=== PATIENT | male | born 1935 | race Caucasian/White ===

== ENCOUNTER 2016-11-16 14:00 | Inpatient (IN) | payer MEDICARE, OTHER ==
[2016-11-16] MEDS ORDERED: Acetaminophen TAB* 325 MG PO PRN (16:12)
[2016-11-16] MEDS ORDERED: Dextrose 50% Syringe 50 ML* 25 GM/50 ML SYRINGE IV PUSH PRN (16:16)
[2016-11-16] MEDS ORDERED: predniSONE TAB* 10 MG PO SCH (16:30)
[2016-11-16] MEDS: Insulin LISPRO* 1 UNITS UNIT SUBCUT SCH (16:37)
--- NOTE | 2016-11-16 16:48 | RAD ---
INDICATION: Pneumonia. COMPARISON: Comparison is made with a prior chest x-ray study from July 19, 2016. TECHNIQUE: A portable view of the chest was obtained. FINDINGS: The heart is enlarged and unchanged from the prior exam. The lungs are underinflated and grossly clear. No pleural effusion is seen. IMPRESSION: NO EVIDENCE FOR ACUTE FINDING.
[2016-11-16] MEDS ORDERED: cefTRIAXone VIAL(*) 1,000 MG in NS 0.9% 50 ML* 50 ML IVPB SCH (17:00)
[2016-11-16] MEDS: Folic Acid TAB* 1 MG PO SCH (17:13)
[2016-11-16] MEDS: Enoxaparin(*) 40 MG/0.4 ML SYR SUBCUT SCH (17:13)
[2016-11-16] MEDS: Nystatin SUSPENSION* 100000 UNITS/ML 5 ML UDC PO SCH ×2 (17:13→19:39)
[2016-11-16] MEDS: Sertraline* 100 MG TAB PO SCH (17:13)
[2016-11-16] MEDS: NS 0.9% 1000 ML* 1,000 ML IV SCH (17:14)
[2016-11-16] MEDS: DOXYcycline IV* 100 MG in NS 0.9% 250 ML* 250 ML IVPB SCH (17:55)
[2016-11-16 18:26] LABS: BUN/Creatinine Ratio 16.3 (8-20); C Reactive Protein 92.17 mg/L (< 5.00); Calcium 9.6 mg/dL (8.6-10.3); EGFR African American 109.5 (>60); EGFR Non-African American 85.1 (>60); Potassium 3.9 mmol/L (3.5-5.0)
[2016-11-16 18:31] LABS: Troponin I 0.19 ng/mL (<0.04)
[2016-11-16 18:34] LABS: Hematocrit 39 % (42-52); Hemoglobin 12.6 g/dl (14.0-18.0); Mean Corpuscular HGB Conc 33 g/dl (31-36); Mean Corpuscular Hemoglobin 29 pg (27-31); Mean Corpuscular Volume 89 fL (80-94); Mean Platelet Volume 8 um3 (7.4-10.4); Red Blood Count 4.39 10^6/ul (4.0-5.4); Red Cell Distribution Width 16 % (10.5-15); White Blood Count 8.6 10^3/ul (3.5-10.8)
[2016-11-16 19:25] LABS: Erythrocyte Sed Rate 79 mm/Hr (0-40)
--- NOTE | 2016-11-16 22:57 | HP ---
ADMISSION HISTORY AND PHYSICAL: DATE OF ADMISSION: 11/16/16 PRIMARY CARE PROVIDER: Brayden Yates DO. ADMITTING PROVIDER: MAYRA Mckeon. SUPERVISING PHYSICIAN: Dr. Jesus Manuel Burton.* (DICTATED BY MAYRA MCKEON) CHIEF COMPLAINT: Unresponsive episode, transferred from [facility] in [place]. HISTORY OF PRESENT ILLNESS: This is an 81-year-old gentleman with a diagnosis of temporal arteritis towards the end of June, followed by Dr. Murray, currently on a prednisone taper, as well as hyperlipidemia, depression, mild dementia, and steroid-induced hyperglycemia managed with metformin, as well as a history of hypertension, but his antihypertensives were discontinued about 6 months ago. The patient was transferred to our service from [facility] per the family's request. Apparently, on 11/14/16, which is now 2 days ago, the patient had an unresponsive episode. The patient had awoken in the morning, but was still in bed and seemed appropriate and then when his girl- friend returned she was unable to wake him and he had these jerky movements and an episode of urinary incontinence in the bed. EMS was contacted and the patient was transferred to [facility]. The patient's girlfriend estimated that this episode lasted approximately 45 minutes and he was still largely unresponsive when he left the house with EMS. The patient had an extensive workup at [facility], which revealed possibly a mild bibasilar pneumonia seen on chest x-ray and CTA of the chest. An EEG was performed, which was negative for any epileptic activity, and an MRI of the brain which, I believe, was done without contrast was also performed and did not show any acute abnormalities that may have been responsible for a seizure. The patient's initial troponin when he reached [facility] was 0.14. It was raised to a peak of 1.9, unsure exactly what the timing of that was. He was started on a heparin drip empirically and underwent an echocardiogram which did not show any wall motion abnormalities. There were no EKG changes appreciated and the patient denied any complaints of chest pain. The patient was started on ceftriaxone and doxycycline for a presumed pneumonia. He did not have any complaints of cough, did not have any measured fevers, and his white blood cell count was 10,900 at admission. EMS did note him to be hypoxic, however, when they reached the house, and his oxygen levels were measured at 86%. Neurology consultation was obtained at [facility]. The neurologist there thought it was quite unlikely that he experienced a seizure and thought that perhaps a REM sleep disorder could have explained the episode that his girlfriend had witnessed and thought that a workup for sleep apnea would be appropriate. No specific intervention was recommended. Of note, the patient had a significantly elevated lactic acid at the time of admission at 3.06, I do not see this was repeated; and a prolactin level was not obtained at the time of admission. Yesterday, the patient became severely agitated to the point that he required physical restraints as well as chemical sedation, and the patient's family stated that they had seen him get somewhat agitated with hospital admissions in the past and he does have some baseline dementia, but nothing to the extent of what they witnessed yesterday. He was inflicting self-harm to the point that he was gnawing on his own wrist and trying to get out of the restraints and was swearing at nursing and punching at family members. The patient's family requested transfer to [facility] as he has had a prior hospitalization here at the end of June at which point he was diagnosed with temporal arteritis and has been followed by Dr. Murray since that time and is on a tapering dose of steroids. He was started on 60 mg daily and is currently on 40 mg alternating with 30 mg. The patient's primary symptoms at that time were headache and dizziness and those symptoms have since resolved. PAST MEDICAL HISTORY: 1. Hyperlipidemia. 2. Depression. 3. History of temporal arteritis, still treated with prednisone, followed by Dr. Murray. 4. Mild dementia. 5. Steroid-induced hyperglycemia, currently being treated with metformin. 6. History of hypertension - antihypertensive medications were discontinued about 6 months ago, but the patient's family reports that his blood pressure has been increasing over the last couple of months. HOME MEDICATIONS: 1. Sertraline 100 mg p.o. daily. 2. Metformin 500 mg p.o. daily. 3. Prednisone 40 mg alternating with 30 mg daily. 4. Vitamin D 2000 units p.o. daily. 5. Folic acid 1 mg p.o. daily. FAMILY HISTORY: No significant family history. Mother passed at quite an advanced age and father of complications from peritonitis. SOCIAL HISTORY: The patient has been living independently up until recently where he has been living with his girlfriend more frequently who is closer to the [facility] and she has been helping him as he has been having increased weakness. His 2 daughters, Nita and Shanita, are his healthcare proxies. He has no smoking history. He has had a history of rather significant alcohol intake, but it seems like that volume has decreased to near zero. REVIEW OF SYSTEMS: The patient reports that his review of systems is negative including chest pain, shortness of breath, cough, abdominal pain, nausea, and vomiting. He does not recall the events of the last several days, however. PHYSICAL EXAMINATION GENERAL: This is a very pleasant 81-year-old gentleman, in no acute distress. He smiles frequently and is interactive. VITAL SIGNS: Temperature 98.6 degrees Fahrenheit, pulse 72 beats per minute, respiratory rate 20, oxygen saturation 96% on 3 L, and blood pressure 176/90 mmHg. HEENT: Head is normocephalic and atraumatic. His tongue, however, has several healing lesions and is quite swollen itself. Evidence of old bleeding, which sounds like might have been a result of yesterday's struggle, but there is also some evidence of thrush. RESPIRATORY: Lungs are clear to auscultation without wheezes, crackles, or rhonchi. CARDIOVASCULAR: Heart has a regular rate and rhythm without murmurs, rubs, or gallops. ABDOMEN: Soft and nontender to palpation. EXTREMITIES: There is no lower extremity edema appreciated. SKIN: The patient has multiple areas of ecchymosis in various stages of healing. No other abnormal rashes or lesions appreciated. PSYCH: The patient is alert and appropriately oriented. Not all orientation questions were completed. LABORATORY EVALUATION: CBC, basic metabolic panel, lactic acid, troponin, procalcitonin, and CRP are pending for today. Reviewed admission labs from at [facility] where white blood cell count of 10,900 was noted. He is mildly anemic with a hemoglobin of approximately 12.5 g/dL and a platelet count of approximately 135,000. Troponin was mildly elevated at 0.14, peaking at 1.9. Basic metabolic panel was unremarkable and lactic acid at admission was 3.06. IMAGING: Repeat chest x-ray from admission here, 11/16/16, shows no acute process. Remainder of imaging from [facility] is as follows: 1. Chest x-ray shows mild bibasilar infiltrate. 2. CT of the head shows microvascular changes, which appear to be chronic in nature. 3. EEG is read as negative and possibly representing a chronic encephalopathy, but no epileptiform activity. 4. MRI of the brain without contrast is negative for abnormal lesions or recent infarct. 5. CTA of the chest shows no dissection or embolus, but does show a mild bibasilar infiltrate. 6. Echocardiogram is reported as essentially within normal limits, with a left ventricular ejection fraction of 60% to 65%, without wall motion changes. 7. CT of the abdomen and pelvis showed a liver cyst that requires followup, but otherwise no acute changes. ASSESSMENT AND PLAN: This is an 81-year-old gentleman with a relative recent diagnosis of temporal arteritis, being treated with a prednisone taper, as well as steroid-induced hyperglycemia, mild dementia, hypertension, hyperlipidemia, and depression who was admitted at [facility] for an unresponsive episode and was subsequently transferred to [facility] per family's request. 1. Unresponsive episode - a very thorough workup was completed at [facility]. The history sounds like it could have represented a seizure, but in an 81-year-old gentleman, we should see some sort of inciting cause for a new onset seizure such as brain lesion, recent infarct or metabolic process, none of which were discovered in recent workup. The patient is actively followed by Dr. Murray for neurologic care for his temporal arteritis and we will request his input in this case. The patient seems to be back to his baseline neurologic status at this time and does not require any urgent intervention. We will also measure overnight pulse oximetry to evaluate for hypoxia which may help to support the idea of potential sleep apnea. 2. History of temporal arteritis - Continue his current tapering dose of prednisone which is 30 mg alternating with 40 mg daily. 3. Possible pneumonia - Repeat chest x-ray here did not show any obvious infiltrate. He received 2 days of ceftriaxone and doxycycline at [facility]. Plan to continue that at this time, with repeat labs pending. 4. Steroid-induced hyperglycemia - I will hold his metformin at this time and cover with sliding scale insulin. 5. Deconditioning - The patient's family has noticed that he is extremely weak. I will ask for Physical Therapy and Occupational Therapy consults and consider short- term rehab stay at the time that he is appropriate for discharge. 6. Mild dementia with a recent history of delirium - Again, he has no evidence of delirium at this time and seems to be quite appropriate. 7. History of hypertension - The patient is noted to be hypertensive at the time of admission. Continue to trend this. It is possible with his recent steroids that he will require antihypertensives for the next several months until he tapers off of his steroids completely, and these will be started appropriately as necessary. 8. Recent elevated troponin - This is likely to be demand related based on recent acute episode. We will repeat a troponin now. No wall motion changes noted on echocardiogram from [facility]. The patient's family does not desire significant intervention including cardiac catheterization if that were to be indicated unless in the case of emergency - we will hold off on doing any stress testing if there is no desired intervention other than medical therapy. 9. Code status: The patient is DNR/DNI. 10. DVT prophylaxis: The patient is at [id number] risk for DVT and will be placed on Lovenox 40 mg subcu daily. 11. Healthcare proxy: Both of his daughters, Nita Echevarria and Shanita Woodson, are co-healthcare proxies. 12. Disposition: The patient is being admitted to inpatient status at this time with anticipated length of stay of greater than two midnights, pending Neurology consult and possible discharge to subacute rehab when appropriate. CC: Dr. Brayden Yates* [id number]/[facility] #: [id number] WESLEY
[2016-11-17] MEDS ORDERED: hydrALAZINE IV* 20 MG/ML VIAL IV PRN (00:54)
[2016-11-17] MEDS: DOXYcycline IV* 100 MG in NS 0.9% 250 ML* 250 ML IVPB SCH ×2 (04:10→16:21)
[2016-11-17 05:41] LABS: BUN/Creatinine Ratio 16.7 (8-20); Calcium 9.2 mg/dL (8.6-10.3); EGFR African American 134.4 (>60); EGFR Non-African American 104.5 (>60); Potassium 3.7 mmol/L (3.5-5.0)
[2016-11-17 07:50] LABS: Hematocrit 38 % (42-52); Hemoglobin 12.5 g/dl (14.0-18.0); Mean Corpuscular HGB Conc 33 g/dl (31-36); Mean Corpuscular Hemoglobin 29 pg (27-31); Mean Corpuscular Volume 88 fL (80-94); Mean Platelet Volume 8 um3 (7.4-10.4); Red Cell Distribution Width 16 % (10.5-15); White Blood Count 7.7 10^3/ul (3.5-10.8)
[2016-11-17] MEDS: Aspirin EC Low Dose* 81 MG TAB.EC PO SCH (08:09)
[2016-11-17] MEDS: Nystatin SUSPENSION* 100000 UNITS/ML 5 ML UDC PO SCH ×4 (08:09→21:11)
[2016-11-17] MEDS: Sertraline* 100 MG TAB PO SCH (08:09)
[2016-11-17] MEDS: predniSONE TAB* 20 MG PO SCH (08:09)
[2016-11-17] MEDS: Folic Acid TAB* 1 MG PO SCH (08:09)
[2016-11-17] MEDS: Insulin LISPRO* 1 UNITS UNIT SUBCUT SCH ×3 (08:17→16:35)
--- NOTE | 2016-11-17 10:32 | PN ---
Subjective Date of Service: 11/17/16 Interval History: No new c/o. Patient thinks he may be too weak to manage at home. Objective Active Medications: Acetaminophen (Tylenol Tab*) 650 mg PO Q4H PRN PRN Reason: FEVER/PAIN Aspirin (Aspirin Ec Low Dose*) 81 mg PO DAILY [facility] Last Admin: 11/17/16 08:09 Dose: 81 mg Atorvastatin Calcium (Lipitor*) 20 mg PO 1700 [facility] Dextrose (D50w Syringe 50 Ml*) 12.5 gm IV PUSH .FOR FS < 60 - SS PRN PRN Reason: FS < 60 Enoxaparin Sodium (Lovenox(*)) 40 mg SUBCUT Q24H [facility] Last Admin: 11/16/16 17:13 Dose: 40 mg Folic Acid (Folvite Tab*) 1 mg PO DAILY [facility] Last Admin: 11/17/16 08:09 Dose: 1 mg Hydralazine HCl (Apresoline Iv*) 10 mg IV Q4H PRN PRN Reason: Systolic >170 Last Admin: 11/17/16 01:32 Dose: 10 mg Sodium Chloride (Ns 0.9% 1000 Ml*) 1,000 mls @ 50 mls/hr IV PER RATE [facility] Last Admin: 11/16/16 17:14 Dose: 50 mls/hr Doxycycline Hyclate 100 mg/ (Sodium Chloride) 250 mls @ 250 mls/hr IVPB Q12H [facility] Last Admin: 11/17/16 04:10 Dose: 250 mls/hr Ceftriaxone Sodium 1,000 mg/ (Sodium Chloride) 50 mls @ 200 mls/hr IVPB Q24H [facility] Last Admin: 11/16/16 17:13 Dose: 200 mls/hr Insulin Human Lispro (Humalog*) 0 units SUBCUT AC [facility] PRN Reason: Protocol Last Admin: 11/17/16 08:17 Dose: Not Given Nystatin (Nystatin Suspension*) 500,000 units PO QID [facility] Stop: 11/23/16 16:17 Last Admin: 11/17/16 08:09 Dose: 500,000 units Prednisone (Deltasone Tab*) 40 mg PO Q48H [facility] Last Admin: 11/17/16 08:09 Dose: 40 mg Prednisone (Deltasone Tab*) 30 mg PO Q48H [facility] Sertraline HCl (Zoloft*) 100 mg PO DAILY [facility] Last Admin: 11/17/16 08:09 Dose: 100 mg Vital Signs 11/16/16 11/16/16 11/16/16 14:08 14:33 16:03 Temperature 98.6 F 97.5 F Pulse Rate 72 69 Respiratory 20 20 18 Rate Blood Pressure 176/90 172/71 (mmHg) O2 Sat by Pulse 96 97 Oximetry 11/16/16 11/16/16 11/17/16 19:25 20:00 00:21 Temperature 97.5 F 98.0 F Pulse Rate 68 82 Respiratory 18 16 16 Rate Blood Pressure 158/81 173/97 (mmHg) O2 Sat by Pulse 99 97 Oximetry 11/17/16 11/17/16 11/17/16 03:56 07:27 08:00 Temperature 98.0 F 98.3 F Pulse Rate 73 79 Respiratory 16 16 16 Rate Blood Pressure 119/66 143/88 (mmHg) O2 Sat by Pulse 96 97 Oximetry Oxygen Devices in Use Now: None Appearance: Alert, in a chair. In good spirits. Looks comfortable. Eyes: No Scleral Icterus Ears/Nose/Mouth/Throat: Clear Oropharnyx, Mucous Membranes Moist Neck: NL Appearance and Movements; NL JVP, No Thyroid Enlargement, Masses Respiratory: Symmetrical Chest Expansion and Respiratory Effort, Clear to Auscultation, Clear to Percussion Cardiovascular: NL Sounds; No Murmurs; No JVD, RRR, No Edema, - Extremities: No Edema, No Clubbing, Cyanosis, - Skin: No Rash or Ulcers, No Nodules or Sclerosis, - Neurological: Alert and Oriented x 3, NL Sensation Result Diagrams: 11/17/16 07:13 11/19/16 02:47 Assess/Plan/Problems-Billing Assessment: - Patient Problems (1) Unresponsive episode Current Visit: Yes Status: Acute Comment: Occurred 11/14/16, ? lasted 45 min. Workup at [facility] in [place]. He never had one before that. Discussed with Dr. Murray. Stress test 11/19. Elevated troponin up to 1.9 at [facility]. ?? arrythmia ? caused by or causing ischemia. (2) Memory loss Current Visit: No Status: Acute Comment: Resolved. Daughter pleased with his improvement. MRI showed only involutional changes, ? clinical significance. TSH and ammonia levels wnl. (3) Temporal arteritis Current Visit: No Status: Acute Code(s): M31.6 - OTHER GIANT CELL ARTERITIS SNOMED Code(s): 440965533 Comment: Continue prednisone at home dose for now. DIscussed with Dr. Murray. Stop ceftriaxone, continue doxycycline as started in [place]. Lumbar puncture to r/o V-Z infection as cause of temporal arteritis. Dr. Murray is starting IV acyclovir.
[2016-11-17] MEDS: Atorvastatin* 20 MG TAB PO SCH (16:20)
[2016-11-17] MEDS: Enoxaparin(*) 40 MG/0.4 ML SYR SUBCUT SCH (16:21)
--- NOTE | 2016-11-17 19:18 | CONS ---
NEUROLOGY CONSULTATION: DATE OF CONSULT: 11/17/16 LOCATION: He is in room 435. REFERRING PHYSICIAN: Dr. Guillen. CHIEF COMPLAINT: Unresponsiveness, confusion. HISTORY OF PRESENT ILLNESS: Alex Mullins is an 81-year-old gentleman known to me from a prior hospitalization this past June when he presented with recurrent episodes of confusion, weakness, and headaches, and was found to have biopsy-proven temporal arteritis. He was treated with oral steroids and did well in terms of resolution of headaches. He continued to have episodes of confusion, and in fact, became more confused over time when last seen in my office in followup a couple of months ago. We have tapered his prednisone gradually from 60 mg per day to current 30 mg per day alternating with 40 mg. Because of this confusion, he moved in with his girlfriend in [place]. She watches over his medications. He was able to go out to a restaurant with his family 3 days prior to his admission to [facility] on November 14. He was ambulating independently, in his usual mildly confused self, but not acutely different. The morning of admission at [facility] on , his girlfriend was unable to arouse him. The history is from extensive review of records from [facility] and from his daughter who is present. She says that the girlfriend said that he was unresponsive and limp, but breathing and snoring. She called an ambulance. By the time they got into [facility], he was responding, but subdued and disoriented. He had an extensive evaluation there and notable for CT of the brain revealing hypodensities consistent with chronic ischemic disease, CT angiogram of the brain interpreted as normal, MRI of the brain revealing chronic diffuse white matter disease without acute infarctions, an echocardiogram interpreted as normal, and blood work notable for persistently elevated troponins and elevated lactic acid. On the second hospital day, he became very agitated. He required restraints as well as Seroquel and it sounds like also lorazepam. He experienced extensive bruising and bit up his tongue according to his daughter. She is pretty confident that his tongue was not bitten when he presented to the hospital the first day, but only on the second day when he had an agitated delirium by description. By the third day, he was calmer, but confused and disoriented, and family requested transfer to our hospital. He has not had any problems with headaches for months. He has been somewhat confused progressively, if not at least persistently for a couple of months. He has been getting short of breath easier and easier without a clear explanation. He denies it, but he was short of breath in my office the exam room and also when muscle testing and that has persisted according to the daughter. He has not had any chills or sweats. His medications have been given to him reliably. PAST MEDICAL HISTORY: Notable for biopsy-proven temporal arteritis, type 2 diabetes, hypertension. MEDICATIONS AT HOME: Consist of: 1. Sertraline 100 mg p.o. q. day. 2. Prednisone 40 mg alternating with 30 mg q. day. 3. Metformin 500 mg p.o. q. day. 4. Vitamin D. 5. Folic acid. Medications currently include the above as well as: 1. Aspirin 81 mg p.o. q. day. 2. Atorvastatin 20 mg p.o. q. day. 3. Doxycycline 100 mg IV q.12 hours started at [facility]. 4. Lovenox 40 mg subcu q.12 hours. 5. Hydralazine p.r.n. blood pressure parameters. 6. Nystatin suspension 500,000 units p.o. four times a day. REVIEW OF SYSTEMS: Current review of systems negative for change in weight or intestinal problems. No headaches. No jaw pain with chewing. No difficulty swallowing. He admits to a sore tongue. He denies visual problems. He denied shortness of breath, but again he is poorly cognizant of some of his symptoms as discussed above. PHYSICAL EXAM: He is well nourished and well hydrated. He has been afebrile here and review of records from [facility], I believe he was afebrile the entire time there as well. Blood pressures are running fairly high at 170/70 to 90, heart rate was about 70 and regular, and respiratory rate is 18. Oxygen saturation currently is 97% on room air, but was as low as 65% early this morning according to his nurse. Lungs sound clear bilaterally. Neck is supple and nontender. Heart is in a regular rate and rhythm and I do not hear any murmurs. His tongue is pretty severely bitten laterally and a little bit on the tip. Oral mucosa is erythematous. Neurologically, pupils react equally from about 2.5 to 2 mm. Fundi reveal sharp discs without hemorrhages. Eye movements are full. Visual maki are full to confrontation. There is no ptosis. Facial musculature is symmetric. Facial sensation is intact. He is hard of hearing bilaterally. Motor exam reveals grade 4 to 4+ hip flexor weakness bilaterally. He has good strength in the limbs otherwise and no rigidity or spasticity. He can rise from a chair without the use of his arms. Reflexes are hypoactive in the biceps, trace at the knees, and otherwise absent. Plantars are flexor bilaterally. He is tremulous in both hands, but there is no myoclonus or asterixis. There is no rest tremor. He is oriented to [facility]. He knows he is in the hospital, but does not know the name of it. He is only able to remember 1 out of 3 items after several minutes, and cannot spell the word world backwards. DIAGNOSTIC STUDIES/LAB DATA: From here so far since transfer yesterday notable for CBC with a hemoglobin at 12.5, platelet count 139,000, and normal white blood cell count. Sedimentation rate is 79 on 11/16/16 compared to 90 on and 44 on 08/22/16. Even before he was started on steroids, his sedimentation rate was just 51. His chemistries from 11/17/16 notable for glucose 163, lactic acid 1.9, electrolytes otherwise unremarkable, liver enzymes are normal. Troponin remains elevated at 0.19, was persistently elevated between 0.14 to 0.19 at [facility]. CRP yesterday was 92.17 , it was just 9.26 on 07/20/16 before he was started on steroids. Procalcitonin was normal at less than 0.1 on 11/16/16. IMPRESSION: Episode of unresponsiveness in an 81-year-old man with progressive cerebrovascular disease and temporal arteritis. He then had an agitated delirium by description. He may have had a seizure in his sleep as one possible cause. However, he also appears to have cardiopulmonary disease with persistently elevated troponins and progressive shortness of breath and desaturations and he may have had a cardiopulmonary event or at least significant hypoxia in his sleep leading to unresponsiveness. RECOMMENDATIONS: Recommend that we repeat his EEG tomorrow as the one at [facility] was interpreted as slow, but otherwise normal. Recommend monitoring his oxygenation and possibly getting a Pulmonary consultation. His chest x-ray here on 11/16/[address] Dailey as showing enlargement of the heart unchanged from prior exam and underinflated lungs, which were otherwise clear. A CT of the chest in [place] was interpreted as showing interstitial lung disease or possible pneumonia at the bases. We may want to consider repeating his echocardiogram or having Cardiology see him as to why his troponins are still persistently elevated and also if it is causing his shortness of breath. I discussed my initial impressions with Dr. Guillen and also with his daughter. CC: Dr. Yates * [id number]/[facility] #: [id number] MTDXander
[2016-11-18] MEDS: DOXYcycline IV* 100 MG in NS 0.9% 250 ML* 250 ML IVPB SCH ×3 (04:14→17:32)
[2016-11-18] MEDS: Insulin LISPRO* 1 UNITS UNIT SUBCUT SCH ×3 (08:15→17:31)
[2016-11-18] MEDS: Aspirin EC Low Dose* 81 MG TAB.EC PO SCH (08:28)
[2016-11-18] MEDS: Folic Acid TAB* 1 MG PO SCH (08:28)
[2016-11-18] MEDS: predniSONE TAB* 10 MG PO SCH (08:29)
[2016-11-18] MEDS: Nystatin SUSPENSION* 100000 UNITS/ML 5 ML UDC PO SCH ×4 (08:29→23:33)
[2016-11-18] MEDS: Sertraline* 100 MG TAB PO SCH (08:30)
[2016-11-18] MEDS ORDERED: NS 0.9% 250 ML* 250 ML ONE (15:28)
--- NOTE | 2016-11-18 15:53 | PN ---
Subjective Date of Service: 11/18/16 Interval History: No c/o. Objective Active Medications: Acetaminophen (Tylenol Tab*) 650 mg PO Q4H PRN PRN Reason: FEVER/PAIN Aspirin (Aspirin Ec Low Dose*) 81 mg PO DAILY REPLACED BY [facility] Last Admin: 11/18/16 08:28 Dose: 81 mg Atorvastatin Calcium (Lipitor*) 20 mg PO 1700 REPLACED BY [facility] Last Admin: 11/17/16 16:20 Dose: 20 mg Dextrose (D50w Syringe 50 Ml*) 12.5 gm IV PUSH .FOR FS < 60 - SS PRN PRN Reason: FS < 60 Folic Acid (Folvite Tab*) 1 mg PO DAILY REPLACED BY [facility] Last Admin: 11/18/16 08:28 Dose: 1 mg Hydralazine HCl (Apresoline Iv*) 10 mg IV Q4H PRN PRN Reason: Systolic >170 Last Admin: 11/17/16 01:32 Dose: 10 mg Sodium Chloride (Ns 0.9% 1000 Ml*) 1,000 mls @ 50 mls/hr IV PER RATE REPLACED BY [facility] Last Admin: 11/16/16 17:14 Dose: 50 mls/hr Doxycycline Hyclate 100 mg/ (Sodium Chloride) 250 mls @ 250 mls/hr IVPB Q12H REPLACED BY [facility] Last Admin: 11/18/16 04:14 Dose: 250 mls/hr Acyclovir Sodium 640 mg/ (Sodium Chloride) 112.8 mls @ 112.8 mls/hr IVPB Q8H REPLACED BY [facility] Insulin Human Lispro (Humalog*) 0 units SUBCUT AC REPLACED BY [facility] PRN Reason: Protocol Last Admin: 11/18/16 12:27 Dose: 3 units Nystatin (Nystatin Suspension*) 500,000 units PO QID REPLACED BY [facility] Stop: 11/23/16 16:17 Last Admin: 11/18/16 12:29 Dose: 500,000 units Prednisone (Deltasone Tab*) 40 mg PO Q48H REPLACED BY [facility] Last Admin: 11/17/16 08:09 Dose: 40 mg Prednisone (Deltasone Tab*) 30 mg PO Q48H REPLACED BY [facility] Last Admin: 11/18/16 08:29 Dose: 30 mg Sertraline HCl (Zoloft*) 100 mg PO DAILY REPLACED BY [facility] Last Admin: 11/18/16 08:30 Dose: 100 mg Vital Signs 11/17/16 11/17/16 11/17/16 19:26 20:00 23:42 Temperature 97.6 F 97.9 F Pulse Rate 82 81 Respiratory 17 16 16 Rate Blood Pressure 145/68 120/86 (mmHg) O2 Sat by Pulse 98 97 Oximetry 11/18/16 11/18/16 11/18/16 04:17 08:00 08:21 Temperature 98.2 F Pulse Rate 71 73 Respiratory 16 16 16 Rate Blood Pressure 157/81 160/85 (mmHg) O2 Sat by Pulse 98 98 Oximetry 11/18/16 11:24 Temperature 97.4 F Pulse Rate 82 Respiratory 16 Rate Blood Pressure 157/85 (mmHg) O2 Sat by Pulse 97 Oximetry Oxygen Devices in Use Now: None Appearance: Alert, in a chair. In good spirits. Looks comfortable. Eyes: No Scleral Icterus Neck: NL Appearance and Movements; NL JVP, No Thyroid Enlargement, Masses Respiratory: Symmetrical Chest Expansion and Respiratory Effort, Clear to Auscultation, Clear to Percussion Cardiovascular: NL Sounds; No Murmurs; No JVD, RRR, No Edema, - Extremities: No Edema, No Clubbing, Cyanosis, - Skin: No Rash or Ulcers, No Nodules or Sclerosis, - Neurological: Alert and Oriented x 3, NL Sensation Result Diagrams: 11/17/16 07:13 11/17/16 04:57 Assess/Plan/Problems-Billing Assessment: - Patient Problems (1) Unresponsive episode Current Visit: Yes Status: Acute Comment: Occurred 11/14/16, ? lasted 45 min. Workup at [facility] in [place]. He never had one before that. Discussed with Dr. Murray. Stress test 11/19. Elevated troponin up to 1.9 at [facility]. ?? arrythmia ? caused by or causing ischemia. (2) Memory loss Current Visit: No Status: Acute Comment: Resolved. Daughter pleased with his improvement. MRI showed only involutional changes, ? clinical significance. TSH and ammonia levels wnl. (3) Temporal arteritis Current Visit: No Status: Acute Code(s): M31.6 - OTHER GIANT CELL ARTERITIS SNOMED Code(s): 962180309 Comment: Continue prednisone at home dose for now. DIscussed with Dr. Murray. Stop ceftriaxone, continue doxycycline as started in [place]. Lumbar puncture to r/o V-Z infection as cause of temporal arteritis. Dr. Murray is starting IV acyclovir. (4) Diabetes Current Visit: Yes Status: Acute Code(s): E11.9 - TYPE 2 DIABETES MELLITUS WITHOUT COMPLICATIONS SNOMED Code(s): 66598368 Comment: Related to prednisone use. Continue Lispro. Resume metformin when discharged.
[2016-11-18] MEDS: Atorvastatin* 20 MG TAB PO SCH (15:56)
[2016-11-18] MEDS: ACYCLOVIR IVPB SCH (16:12)
[2016-11-18] MEDS: NS 0.9% IVPB SCH (16:12)
[2016-11-18] MEDS: NS 0.9% 1000 ML* 1,000 ML IV SCH (16:18)
--- NOTE | 2016-11-18 20:32 | CONS ---
NEUROLOGY CONSULTATION: DATE OF CONSULT: 11/18/16 HOSPITALIST: Dr. Guillen. PRIMARY CARE PROVIDER: Dr. Yates. LOCATION: He is an inpatient in room #435. CHIEF COMPLAINT: Episode of unresponsiveness, temporal arteritis. INTERVAL HISTORY: Since yesterday Mr. Mullins states he feels well. He has impaired memory, however. He denies any headache. He states he has not been up , but then his nurse states he has been up walking with physical therapy and he was walking well. He denies any pain anywhere. The exception is the site of his tongue still hurts on the left. MEDICATIONS: Reviewed and he remains on, 1. Prednisone 30 mg per day alternating with 40 mg per day. 2. Doxycycline 100 mg IV q.12 hours. 3. Folic acid 1 mg p.o. daily. 4. Sliding scale insulin. 5. Nystatin 500,000 units p.o. 4 times a day. 6. Sertraline 100 mg p.o. daily. 7. Atorvastatin 20 mg p.o. daily. 8. Aspirin 81 mg p.o. daily. PHYSICAL EXAMINATION: He has multiple ecchymoses on his arms and is well hydrated. Temperature 97.5 orally, blood pressure 158/80, heart rate about 80 and regular, respiratory rate is 16 and oxygen saturation is 97% on room air. Neck is supple. Eye movements are full. He has grade 4 hip flexor weakness bilaterally and grade 5- proximal upper extremity weakness bilaterally. He has a mild sustention tremor in both hands. He is alert and oriented but has poor memory. Language is fluent. DIAGNOSTIC STUDIES/LAB DATA: Laboratory data includes last troponin being 0.19 on 11/16/16, CRP elevated 92.17. Glucose yesterday 163. I am not sure what caused Mr. Mullins's episode of unresponsiveness but his troponins are still elevated. I spoke with Dr. Guillen and he is going to do some further cardiac evaluation. He had a normal echocardiogram reportedly at [facility] this past week and he had a normal back in June when he was hospitalized here. There is apparently a subset of patients with giant cell arteritis who might have chronic varicella zoster virus infection and so I have discussed with Dr. Guillen doing a lumbar puncture. That is planned to be done later today by Anesthesia and should include varicella zoster virus PCR as well as IgG antibodies and an IgG index. While he is here, I am going to start him on IV acyclovir until the spinal fluid results are back. I will plan to discharge him tomorrow if there is adequate arrangements at home and oral valacyclovir at least until the PCR and antibody studies come back. [id number]/[facility] #: [id number] MTDXander
[2016-11-18] MEDS ORDERED: Midazolam* 1 MG/ML 2 ML VIAL (2 MG) ONE (21:33)
[2016-11-18] MEDS ORDERED: fentaNYL* 50 MCG/ML 2 ML VIAL (100 MCG VIAL) ONE (21:33)
--- NOTE | 2016-11-18 21:58 | PN ---
Progress Note - Progress Note Note: Anesthesia contacted reporting they had come by as requested for an LP, but the patient is currently angry and refusing. As such, if the patient can be convinced to consent tomorrow anesthesia will need to be recontacted.
[2016-11-18] MEDS ORDERED: NS 0.9% 100 ML* 100 ML ONE (23:53)
--- NOTE | 2016-11-19 00:20 | EEG ---
ELECTROENCEPHALOGRAM REPORT: DATE OF STUDY: 11/18/16 - ROOM #435 LOCATION: He is an inpatient in [address] [place] [address]. REFERRING PHYSICIAN: Dr. Murray. CHIEF COMPLAINT: Confusion, episode of unresponsiveness. MEDICATIONS: Include prednisone, aspirin, sliding scale insulin, Lipitor, sertraline, nystatin. EEG DESCRIPTION: This 16-channel EEG is remarkable for background activity consisting of mixed theta, delta, and alpha rhythms fairly diffusely. Slow rhythms were seen from the left hemisphere. The patient is clinically awake. Muscle and movement artifact is seen episodically. There is a low abundance of alpha rhythm of about 8.5 cycles per second seen occipitally, better from the right than the left hemisphere. At times there is accentuation of central slowing, but sleep stages are otherwise not recognized. Activation procedures are not attempted. There are no epileptiform discharges during this recording. INTERPRETATION: Abnormal EEG due to slowing and disorganization of background rhythms with somewhat slow rhythm seen from the left hemisphere than the right. This tracing is compatible with diffuse cerebral dysfunction, but there are no epileptiform discharges. CC: Dr. Yates* [id number]/[facility] #: [id number] MTDD
[2016-11-19] MEDS: ACYCLOVIR IVPB SCH ×4 (00:23→23:33)
[2016-11-19] MEDS: NS 0.9% IVPB SCH ×4 (00:23→23:33)
[2016-11-19 03:30] LABS: BUN/Creatinine Ratio 19.5 (8-20); Calcium 8.8 mg/dL (8.6-10.3); Magnesium 1.6 mg/dL (1.9-2.7); Potassium 3.6 mmol/L (3.5-5.0)
[2016-11-19] MEDS ORDERED: Heparin DRIP 25,000 UNITS(*) 25,000 UNITS/500 ML BAG IVPB SCH (03:45)
[2016-11-19] MEDS ORDERED: Heparin VIAL(*) 5000 UNITS/ML VIAL (FIVE THOUSAND) IV SCH (03:45)
[2016-11-19] MEDS ORDERED: Magnesium Sulfate IV* 3 GM in NS 0.9% 100 ML* 100 ML IVPB ONE (03:46)
--- NOTE | 2016-11-19 03:48 | PN ---
Progress Note - Progress Note Note: Nursing called reporting asymptomatic bursts of tachycardia. BMP, magnesium, & ECG ordered. ECG revealed AFIB rate 113. Magnesium is 1.6. Assessment: plan AFIB, new onset : metoprolol 25mg PO daily, start now : heparin GTT hypoMagnesemia : 3g IV magnesium : recheck Friday AM
[2016-11-19 03:52] LABS: Troponin I 0.1 ng/mL (<0.04)
[2016-11-19] MEDS ORDERED: Metoprolol Succinate XL TAB* 25 MG PO SCH (04:00)
[2016-11-19] MEDS ORDERED: NS 0.9% 100 ML* 100 ML ONE ×2 (04:28→08:17)
[2016-11-19] MEDS ORDERED: Heparin VIAL(*) 5000 UNITS/ML VIAL (FIVE THOUSAND) ONE (04:52)
[2016-11-19] MEDS: DOXYcycline IV* 100 MG in NS 0.9% 250 ML* 250 ML IVPB SCH ×2 (08:45→17:52)
[2016-11-19] MEDS: Insulin LISPRO* 1 UNITS UNIT SUBCUT SCH ×3 (08:59→17:52)
--- NOTE | 2016-11-19 11:48 | RAD ---
Edited for charges. INDICATION: Elevated troponin. COMPARISON: There are no prior studies available for comparison. Technique: A single day myocardial perfusion stress study was performed. Initially the resting study was performed. The patient was given an intravenous injection of 10.0 mCi of technetium 99m tetrofosmin and and the heart was imaged in multiple projections. The patient returned later in the day and under the direction of Dr. Dooley, the patient was given intervenous injection of Lexiscan. Subsequently the patient was given intravenous injection of 25.4 mCi of technetium 99m tetrofosmin and the heart was imaged in multiple projections. Images were reconstructed in the axial, sagittal and coronal planes and in a 3- D format. FINDINGS: There appears to be normal wall motion and myocardial thickening. The left ventricular ejection fraction was calculated to be 70%. Review of the images demonstrates decreased activity in the inferior wall on the post pharmacologic stress and resting images which resolves on the attenuation corrected images and therefore most consistent with attenuation artifact. IMPRESSION: NO EVIDENCE FOR INFARCT OR ISCHEMIA. ASSESSMENT: Low risk. Based on imaging criteria from ACC/AHA 2002 Guideline Update for the Management of Patients With Chronic Stable Angina Table 23. Noninvasive Risk Stratification. MTDD
[2016-11-19] MEDS: Nystatin SUSPENSION* 100000 UNITS/ML 5 ML UDC PO SCH ×4 (14:21→21:15)
--- NOTE | 2016-11-19 14:50 | PN ---
Progress Note - Progress Note SOAP: Patient of dr cherry; initially presenting with last year headaches; he has biopsy proven GCA and has been treated with maintenance po steroids. He presents with episodes of confusion (steroids have been slowly weaned on outpatient to 30/40 qod from 60mg daily initially) and an episode of decreased responsiveness, as well as memory concerns, and in context of ESR re elevation to almost 80 (never normal but was down to 40s several months ago) and CRP elevation. He is on an SSRI and ? baby ASA (dtr says no) at baseline. He has no known history of seizures and is not on any AEDs. He has a dtr and son present, and another dtr who called in. they note that he was independent 6 months ago, has since required more help, gave up driving, dtr took over finances few months ago. He ambulates independently and used to golf. They acknowledge some likely dementia, exacerbated by several episodes of delirium, including recently while at [facility], and requiring at least mechanical restraints. Apparently an Aricept trial was limited by dizziness. Currently pleasant, ao x4 (name, , family, 2017, president, location, etc), seated exam non localizing Dr Murray had planned on LP as per his consult to eval for evidence of LOG DATA TECHNICIAN VZV infection, which has been described in literature in some reports. Apparently he declined this late last night; family still interested in test, understanding it is to eval for a rare cause. Chem ok; PTT back and signif elevated TSH, NH3 were fine back in 07/12 vs B12 was low normal at [address] Murray yesterday and c/w mild diffuse encephalopathy; no discharges Per notes had negative recent echo, CTA and brain mri (all at [facility]) Nuclear stress neg i/p: 81 yo man, likely mild baseline dementia (exacerbated or unmasked by intercurrent illness, delirium, diagnosed with GCA, on steroids, with some memory/cognitive concerns, recent imaging at outside facility without evidence of stroke. Exam non focal. EEG without discharges to support seizure diagnosis. Family understands that workup is to look for presumably uncommon infectious causes or contributors to GCA. 1. Given low normal B12 last fall, can repeat with MMA or just treat IM, and then po 1000mcg daily 2. CSF analysis with cell count, P/G, gm stain and cultures, VZV PCR, IgM and IgG as per dr cherry consult; need to correct or repeat PTT 3. given his elevated inflammatory markers, nursing home GCA [place] he will likely need a prolonged period of increased prednisone dosing prior to repeat taper 4. post LP can go home please eval for support service needs. 5. He can follow up CSF results with dr Murray, as well as steroid dosing, possible trial of Namenda or cholinesterase inhibitors 6. Concur w/ baby ASA terminal manager if not already on it
[2016-11-19] MEDS: predniSONE TAB* 20 MG PO SCH (14:56)
[2016-11-19] MEDS: Folic Acid TAB* 1 MG PO SCH (14:56)
[2016-11-19] MEDS: Aspirin EC Low Dose* 81 MG TAB.EC PO SCH (14:56)
[2016-11-19] MEDS: Sertraline* 100 MG TAB PO SCH (14:57)
--- NOTE | 2016-11-19 15:29 | PN ---
Subjective Date of Service: 11/19/16 Interval History: nO C/O. Objective Active Medications: Acetaminophen (Tylenol Tab*) 650 mg PO Q4H PRN PRN Reason: FEVER/PAIN Aspirin (Aspirin Ec Low Dose*) 81 mg PO DAILY [facility] Last Admin: 11/19/16 14:56 Dose: 81 mg Atorvastatin Calcium (Lipitor*) 20 mg PO 1700 [facility] Last Admin: 11/18/16 15:56 Dose: 20 mg Dextrose (D50w Syringe 50 Ml*) 12.5 gm IV PUSH .FOR FS < 60 - SS PRN PRN Reason: FS < 60 Folic Acid (Folvite Tab*) 1 mg PO DAILY [facility] Last Admin: 11/19/16 14:56 Dose: 1 mg Heparin Sodium (Porcine) (Heparin Vial(*)) 0 units IV .PER PROTOCOL [facility] Hydralazine HCl (Apresoline Iv*) 10 mg IV Q4H PRN PRN Reason: Systolic >170 Last Admin: 11/17/16 01:32 Dose: 10 mg Sodium Chloride (Ns 0.9% 1000 Ml*) 1,000 mls @ 50 mls/hr IV PER RATE [facility] Last Admin: 11/18/16 16:18 Dose: 50 mls/hr Doxycycline Hyclate 100 mg/ (Sodium Chloride) 250 mls @ 250 mls/hr IVPB Q12H [facility] Last Admin: 11/19/16 08:45 Dose: 250 mls/hr Acyclovir Sodium 640 mg/ (Sodium Chloride) 112.8 mls @ 112.8 mls/hr IVPB Q8H [facility] Last Admin: 11/19/16 11:41 Dose: 112.8 mls/hr Heparin Sodium/Dextrose (Heparin Drip 25,000 Units(*)) 25,000 units in 500 mls @ 0 mls/hr IVPB .(INITIAL RATE) [facility]; Per Protocol PRN Reason: Protocol Last Admin: 11/19/16 04:57 Dose: 19 mls/hr Insulin Human Lispro (Humalog*) 0 units SUBCUT AC [facility] PRN Reason: Protocol Last Admin: 11/19/16 14:20 Dose: Not Given Metoprolol Succinate (Toprol Xl Tab*) 25 mg PO 0900 [facility] Last Admin: 11/19/16 04:41 Dose: 25 mg Nystatin (Nystatin Suspension*) 500,000 units PO QID [facility] Stop: 11/23/16 16:17 Last Admin: 11/19/16 14:58 Dose: 500,000 units Prednisone (Deltasone Tab*) 40 mg PO Q48H [facility] Last Admin: 11/19/16 14:56 Dose: 40 mg Prednisone (Deltasone Tab*) 30 mg PO Q48H [facility] Last Admin: 11/18/16 08:29 Dose: 30 mg Sertraline HCl (Zoloft*) 100 mg PO DAILY [facility] Last Admin: 11/19/16 14:57 Dose: 100 mg Vital Signs 11/18/16 11/18/16 11/18/16 15:50 19:46 19:58 Temperature 98.2 F 97.6 F Pulse Rate 98 89 Respiratory 18 16 18 Rate Blood Pressure 124/56 136/94 (mmHg) O2 Sat by Pulse 98 95 Oximetry 11/18/16 11/19/16 11/19/16 23:31 02:06 03:13 Temperature 97.9 F 97.3 F Pulse Rate 85 90 119 Respiratory 16 16 Rate Blood Pressure 156/89 123/84 164/103 (mmHg) O2 Sat by Pulse 96 93 98 Oximetry 11/19/16 11/19/16 11/19/16 04:04 07:29 08:00 Temperature 98.1 F Pulse Rate 83 69 Respiratory 16 16 Rate Blood Pressure 155/88 150/87 (mmHg) O2 Sat by Pulse 97 Oximetry 11/19/16 11:35 Temperature 97.3 F Pulse Rate 62 Respiratory 16 Rate Blood Pressure 150/73 (mmHg) O2 Sat by Pulse 98 Oximetry Oxygen Devices in Use Now: None Appearance: Alert, in a chair. In good spirits. Looks comfortable. Eyes: No Scleral Icterus Ears/Nose/Mouth/Throat: Clear Oropharnyx, Mucous Membranes Moist Neck: NL Appearance and Movements; NL JVP, No Thyroid Enlargement, Masses Respiratory: Symmetrical Chest Expansion and Respiratory Effort, Clear to Auscultation, Clear to Percussion Cardiovascular: NL Sounds; No Murmurs; No JVD, RRR, No Edema, - Extremities: No Edema, No Clubbing, Cyanosis, - Skin: No Rash or Ulcers, No Nodules or Sclerosis, - Neurological: NL Sensation - poor memory, - - Cooperative but poor memory Result Diagrams: 11/17/16 07:13 11/19/16 02:47 Assess/Plan/Problems-Billing Assessment: - Patient Problems (1) Unresponsive episode Current Visit: Yes Status: Acute Comment: Occurred 11/14/16, ? lasted 45 min. Workup at [facility] in [place]. He never had one before that. Discussed with Dr. Murray. Stress test 11/19. Elevated troponin up to 1.9 at [facility]. ?? arrythmia ? caused by or causing ischemia. See remarks under atrial fib below. (2) Memory loss Current Visit: No Status: Acute Comment: Resolved. Daughter pleased with his improvement. MRI showed only involutional changes, ? clinical significance. TSH and ammonia levels wnl. (3) Temporal arteritis Current Visit: No Status: Acute Code(s): M31.6 - OTHER GIANT CELL ARTERITIS SNOMED Code(s): 429238588 Comment: Continue prednisone at home dose for now. DIscussed with Dr. Murray. Stop ceftriaxone, continue doxycycline as started in [place]. Lumbar puncture to r/o V-Z infection as cause of temporal arteritis hopefully can be done 11/20. PTT ordered. Dr. Murary startied IV acyclovir, should go home on oral acyclovir until results of spinal tap available. (4) Atrial fibrillation Current Visit: Yes Status: Acute Code(s): I48.91 - UNSPECIFIED ATRIAL FIBRILLATION SNOMED Code(s): 84408386 Comment: Patient had 3 10 second bursts of atrial fib with RVR form 0157 to 0230 AM 11/18. Possibly a prolonged episode of atrial fib caused his LOC and elevated tropinin last week. I spoke with Dr. Ortiz who can see pt in his office and possibly insert a loop recorder there. Metoprolol 12.5 mg bid ordered to start 11/20 9 PM, received metoprolol XL 25 mg 11/19 04:41. (5) Dementia Current Visit: Yes Status: Acute Code(s): F03.90 - UNSPECIFIED DEMENTIA WITHOUT BEHAVIORAL DISTURBANCE SNOMED Code(s): 96618120 Comment: Methylmalonic acid level add on requested.
[2016-11-19] MEDS: Atorvastatin* 20 MG TAB PO SCH (16:50)
[2016-11-19] MEDS: NS 0.9% 1000 ML* 1,000 ML IV SCH (17:56)
[2016-11-19] MEDS: Metoprolol Tartrate TAB* 25 MG PO SCH (19:32)
[2016-11-20] MEDS: DOXYcycline IV* 100 MG in NS 0.9% 250 ML* 250 ML IVPB SCH (04:06)
[2016-11-20 05:21] LABS: Magnesium 1.8 mg/dL (1.9-2.7)
[2016-11-20] MEDS ORDERED: NS 0.9% 100 ML* 100 ML ONE (07:45)
[2016-11-20] MEDS ORDERED: Magnesium Sulfate 2 GM IV* 2 GM/50 ML BAG IVPB ONE (08:00)
[2016-11-20] MEDS: Metoprolol Tartrate TAB* 25 MG PO SCH (08:05)
[2016-11-20] MEDS: Nystatin SUSPENSION* 100000 UNITS/ML 5 ML UDC PO SCH ×2 (08:06→12:40)
[2016-11-20] MEDS: NS 0.9% IVPB SCH (08:06)
[2016-11-20] MEDS: ACYCLOVIR IVPB SCH (08:06)
[2016-11-20] MEDS: Folic Acid TAB* 1 MG PO SCH (08:06)
[2016-11-20] MEDS: Aspirin EC Low Dose* 81 MG TAB.EC PO SCH (08:06)
[2016-11-20] MEDS: predniSONE TAB* 10 MG PO SCH (08:07)
[2016-11-20] MEDS: Sertraline* 100 MG TAB PO SCH (08:08)
--- NOTE | 2016-11-20 08:31 | PN ---
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 no overnight events; a little more confused this am per nurse. answered basic questions appropriately for me; no family at moment, but dtr Nita to come soon. not formally re examined. med team note reviewed w/ comments re several brief runs of afib/rvr on 11/18; had low dose beta ruben added; superintendent terminal can consider anticoag, holter vs loop ; family made some comments yest re forearm bruising and unclear if even on ASA at baseline (yes per MAR vs family thought no). had trop elevation when at [facility] ? demand induced. d/w pt low normal B12 last fall; MMA added per primary team; can just take po supp on outpt by itself or as part of B class fortified MVI and recheck levels after several months via dr almazan LP still pending; apparently per anesthesia; pt on empiric po abx coverage pending results as per primary team, prior sap ariba consultant. should be able to go home post procedure, results of which they can follow up with dr almazan. has mult family members for local support, lives w/ girlfriend.] Objective: [] Assessment: [] Plan: []
[2016-11-20] MEDS: Insulin LISPRO* 1 UNITS UNIT SUBCUT SCH ×2 (08:36→12:40)
[2016-11-20 09:12] LABS: BUN/Creatinine Ratio 24.1 (8-20); Calcium 8.6 mg/dL (8.6-10.3); EGFR African American 114.1 (>60); EGFR Non-African American 88.7 (>60); Potassium 4.2 mmol/L (3.5-5.0)
[2016-11-20 11:07] LABS: CSF Glucose 86 mg/dL (40-70)
[2016-11-20 11:17] LABS: BF RBC Count #1 0; BF RBC Count #2 0; BF WBC Count #1 2; BF WBC Count #2 2; Body Fluid Appearance Clear; Body Fluid WBC 2 /mcL; RBC counts within 6%? Yes; WBC counts within 15%? Yes
[2016-11-20 11:24] LABS: Body Fluid Total Cells Counted 72
--- NOTE | 2016-11-20 13:05 | PM ---
[facility] NOTE: DATE OF VISIT: 11/20/16 CHIEF COMPLAINT: Worsening confusion and dementia. HISTORY: The patient is an 81-year-old male who was admitted to [facility] on 11/16/16 f or an unresponsive episode and transferred from [facility] in [place]. The patient is a n 81-year-old male with a history of temporal arteritis and is followed by Dr. Murray. The patient was transferred from [facility] for further care. According to the records on 11/14/16, the patient had an unresponsive episode and was admitted to [facility]. An EEG was perfo rmed, was negative for any epileptic activity. An MRI was done as well, which did not show any acut e abnormalities. The patient was admitted here and had runs of atrial fibrillations, so he had been started on a heparin drip, so the lumbar puncture that was requested yesterday could not be done un til the heparin drip was stopped. The patient has now been off Lovenox and a heparin drip, so we wi ll go ahead and proceed with the requested diagnostic lumbar puncture. PAST MEDICAL HISTORY: Significant for hyperlipidemia, depression, temporal arteritis, mild dementia , steroid-induced hyperglycemia, hypertension. MEDICATIONS AT HOME: 1. Sertraline 100 mg p.o. daily. 2. Metformin 500 mg daily. 3. Prednisone 40 mg alternating with 30 mg daily. 4. Vitamin D 2000 units a day. 5. Folic acid 1 mg p.o. q. day. SOCIAL HISTORY: The patient has been living independently up until recently where he has been livin with his girlfriend. He has no smoking history and his alcohol intake is minimal. REVIEW OF SYSTEMS: Positive for confusion/dementia, otherwise negative. PHYSICAL EXAMINATION: The patient is sitting in a chair, appropriate, answers questions. His blood pressure was 155/61, his pulse was 74, respiratory rate was 16, and temperature was 98.5. Lungs we re clear. Heart: Regular rate and rhythm. Back shows no lesions and normal landmarks for a lumbar puncture. LABORATORY DATA: A PTT done at 4:12 this morning at 26.5. His platelet count on 11/17/16 was 139. ASSESSMENT AND PLAN: Confusion/dementia with history of temporal arteritis. A request was made by Dr. Murray for a lumbar puncture to rule out varicella-zoster infection as a cause of the temporal arteritis. I had a chance to discuss the procedure, the risks, benefits, and alternatives with the patient and his daughter and after discussing those risks, benefits, and alternatives, informed cons ent was obtained. PROCEDURE NOTE: The patient was placed in sitting position. His back prepped and draped in the usu al sterile fashion. 3 cc of 1% lidocaine was used for local anesthesia at the L3-4 interspace. A 2 2-gauge spinal needle was advanced into the subarachnoid space, where there was free flow of clear c erebrospinal fluid. There were no paresthesias or blood noted. I proceeded to collect 4 vials of c lear cerebrospinal fluid, which will be sent to the laboratory per Dr. Guillen's orders. The needle w as withdrawn. The patient tolerated the procedure well. [id number]/[facility] #: [id number]
[2016-11-20 15:58] LABS: Varicella IgG Antibody Index 0.9; Varicella-Zoster IgG Antibody Equivocal
[2016-11-20 15:59] VITALS: BP 119/65
[2016-11-20 23:33] LABS: Varicella-Zoster IgM Antibody Negative (Negative)
--- NOTE | 2016-11-21 00:57 | DS ---
DISCHARGE SUMMARY: DATE OF ADMISSION: 11/16/16 DATE OF DISCHARGE: 11/20/16 PRIMARY CARE PROVIDER: Dr. Brayden Yates. NEUROLOGIST: Yang Murray MD HOUSEKEEPING CLEANER: Connie Stanton MD DISCHARGE DIAGNOSES: 1. Episode of unresponsiveness. 2. Paroxysmal atrial fibrillation. 3. Delirium. 4. Possible community-acquired pneumonia. 5. Oral candidiasis. 6. Elevated troponin, likely associated with atrial fibrillation. 7. Overnight hypoxemia, possible sleep apnea. SECONDARY DIAGNOSES: 1. Hyperlipidemia. 2. Depression. 3. Giant cell arteritis on steroids. 4. Mild dementia. 5. Type 2 diabetes/steroid-induced hyperglycemia. 6. Hypertension. MEDICATION LIST: 1. Metformin 500 mg p.o. daily. 2. Folic acid 1 mg p.o. daily. 3. Vitamin D 2000 units p.o. daily. 4. Sertraline 100 mg p.o. daily. 5. Prednisone 30 mg p.o. daily alternating with 40 mg p.o. daily. NEW MEDICATIONS: 1. Valtrex 1 g p.o. t.i.d. 2. Metoprolol tartrate 12.5 mg p.o. q.12 hours. 3. Aspirin 81 mg p.o. daily. 4. Magnesium oxide 800 mg p.o. daily. 5. Potassium chloride 20 mEq p.o. daily. HOSPITAL COURSE: Mr. Mullins is an 81-year-old male with a past medical history as stated above that has had a complex hospital stay. His history goes back to November 14 when he had an episode of unresponsiveness and was admitted to [facility] for further workup. Other abnormalities found during his admission was oral candidiasis, elevated lactic acid, and elevated troponins. As per his HPI, he was found by his significant other in bed with a decreased level of responsiveness, unable to open his eyes, or communicate. There was description of some mild shaking of the arms and legs at different times and he was incontinent of urine. There is report of normal blood glucose upon EMS arrival and after he regained consciousness, he was confused. In the emergency room, he was found to have a lactic acid of 3 and mild elevation of troponin at 0.14. His CT head was described as without acute process and CTA of the chest showed a possible mild bibasilar pneumonia. As part of his workup, the patient was also seen in consultation by Neurology at [facility] (Dr. Erich Walton) and initially the impression was that maybe the episodes could be related to a seizure. Recommendation was for further evaluation with EEG and MRI of the brain. 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 The neurologist felt no reason to treat this at this time and felt that seizure was very unlikely. Family was not satisfied with his care at [facility] and requested transfer to our facility. Please also note that the patient had an echocardiogram that showed the ejection of 65% with no pericardial effusion, no report of wall motion abnormalities. While on [facility], the patient was admitted under the impression of an unresponsive episode and the workup done at [facility] was noted. He did not have significant leukocytosis here. His ESR was 79, down from 90 in August. His lactic acid was found to be normal at 1.9 and his troponin was 0.19 and trended down to 0.1. On the night of 11/18/03, the patient was noted to have a burst of tachycardia. As per night hospitalist note, the patient was found to be in atrial fibrillation with a rate of 113. His magnesium was 1.6 at that time. Electrolytes were repleted and he returned to sinus rhythm as per nurses note. The patient had 3 episodes of atrial fibrillation lasting approximately 10 seconds each with a heart rate of 140 to 145, but then returned to sinus rhythm. There was no other report of atrial fibrillation since then and he has remained in sinus rhythm after this time. The patient did undergo a nuclear medicine stress test that showed no evidence for infarct or ischemia. Overnight , pulse oximetry was performed and it showed an oxygen saturation less than 90% for an hour and 25 minutes. With the longest continuous time of saturation less than 89% lasting 12 minutes. The patient will need sleep study as outpatient and I will Dr. Rivera to arrange it as this maybe playing a role on his episodes of atrial fibrillation. The patient was seen in consultation by Neurology (Dr. Murray) and he was not sure what caused Mr. Mullins's episode of unresponsiveness, but his troponins were still elevated, so he recommended further cardiac evaluation. 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 He also recommended to continue IV acyclovir until spinal fluid results are back. The patient had clinical improvement, although he is still confused at baseline but as per his daughter, he is not far from his baseline. The patient had a lumbar puncture done by Dr. Rhodes on November 20. Preliminary results are of only 2 wbc's with 3% neutrophils, 11% lymphocytes, 86 % monocytes, glucose of 86, and total protein of 62 but all the other results including the zoster PCR are pending. I did discuss this results with Dr. Murray and he was agreeable with patient discharge and he will follow up with him as outpatient when the zoster result is available. He recommended discharging the patient on Valtrex to be continued until he gets the result of the zoster back. I also discussed these episodes of atrial fibrillation with Dr. Murray and with health coordinator (Dr. Stanton). Although he has a CHADs score of 4, he is at an increased risk of bleeding. The patient has had progressive decline since last fall and he is at an increased risk of fall at this time. As he had only 3 episodes of 10 seconds of atrial fibrillation, I have discussed risks and benefits of anticoagulation with his daughter (Nita) and she understands that he is at risk for stroke due to the atrial fibrillation but she agrees that with his decline at this point, he is at the high risk of fall and could have intracranial bleeding with anticoagulation. We see that the most prudent course of action at this point would be to discharge him on an aspirin and he will followup Dr. Stanton next week to have an event monitor placed to try and determine his burden of atrial fibrillation. I believe that if he has many episode or prolonged episodes of atrial fibrillation, anticoagulation should be tried but if this was an isolated event, he maybe better served with an aspirin. Atrial fibrillation maybe the cause of his episode of unresponsiveness too, so that is another indication for an event monitor placement. I believe that if he also has sleep apnea, this could correlate with his episodes of atrial fibrillation, so he will also be referred to Dr. Rivera for an official sleep study. The patient was seen in consultation by physical therapy and occupational therapy and it was felt that he would not require rehab placement at this time. His daughter feels that he will be safe at home with his significant other and daughter is taking care of him and he was also referred to [facility] for other services. The patient was also followed by Neurology throughout the hospital stay (Dr. Lilly) and he agreed with Dr. Murray's assessment. As the patient had a low normal B12 level at 4, he recommended repeating methylmalonic acid level or just adding vitamin B12. But at this point, I believe it is prudent to follow up the results and then decide before adding any other new medications to his list, so please note that at the time of this dictation, his methylmalonic level needs to be followed as it is still pending. The patient was diagnosed with oral candidiasis at [facility] on November 14 and I believe the course of nystatin he has received so far is enough for his treatment. There was also this question of possible pneumonia and I believe the antibiotics he received there and the antibiotic that was continued here is also enough and I am not thoroughly convinced that he really had pneumonia. The patient is felt to be medically stable for discharge at this time. PHYSICAL EXAMINATION: Vital Signs: Temperature 98.2, heart rate is 71, respiratory rate is 18, oxygen saturation is 96% on room air, and blood pressure is 119/65. General: The patient is pleasantly confused elderly male, sitting up in the chair, in no acute distress. HEENT: Pupils are equal. Moist mucous membranes. Chest: Breath sounds bilaterally with no added sounds. CVS: Normal S1, S2. Regular rate rhythm. Abdomen is soft, nontender , nondistended. Bowel sounds are present. Extremities: No edema. Neuro: He is alert, awake, and oriented to self and place. Able to move all 4 extremities. DIET: Heart healthy diet. The patient is advised to avoid caffeine. ACTIVITY: As tolerated. DISPOSITION: To home. STATUS WHILE IN THE HOSPITAL: Inpatient. Please keep in mind that this is a summarized version of this patient's complex and prolonged hospital stay. If you need more information, please feel free to call me at or please obtain full medical records. TIME SPENT: Approximately 55 minutes was spent to complete this discharge. More than half this time was spent [id number] with the patient and coordination of care and with his daughter, Nita. All the questions were answered. CC: Dr. Yates; Dr. Murray; Dr. Stanton* [id number]/[facility] #: [id number] [place]
[2016-11-21 16:46] LABS: CSF Oligoclonal Bands 0 bands; Oligoclonal Proteins Interpret 0 bands (<4); Serum Oligoclonal Bands 0 bands
[2016-11-21 20:55] LABS: Varicella Zoster Result Negative (Negative); Varicella Zoster Source CSF
--- NOTE | 2016-11-22 09:09 | PN ---
Hospitalist Progress Note HOSPITALIST ADDENDUM Called by patient's daughter concerned about Nystatin use. I explained his thrush was resolved, I wanted to minimize his medication list and his thrush episode was resolved. My recommendation at this point is to continue to monitor for signs of candidiasis and she reports he has none at this time. She was advised to contact his PCP if symptoms recur to then reinitiate Nystatin or another antifungal agent.
== END 2016-11-20 18:08 | disposition home health service (06) | DRG 308 ==
LOC: MEDTELE 14:00
PROVIDERS: ADMIT Hospitalist; ATTEND Internal Medicine
PROC: 4A00X4Z Measurement of Central Nervous Electrical Activity, External Approach (ICD-10-PCS; 2016-11-18)
PROC: 009U3ZX Drainage of Spinal Canal, Percutaneous Approach, Diagnostic (ICD-10-PCS; principal; 2016-11-20)
DX: I48.0 Paroxysmal atrial fibrillation (principal); J18.9 Pneumonia, unspecified organism; B37.0 Candidal stomatitis; E11.65 Type 2 diabetes mellitus with hyperglycemia; M31.6 Other giant cell arteritis; F03.90 Unspecified dementia, unspecified severity, without behavioral disturbance, psychotic disturbance, mood disturbance, and anxiety; E83.42 Hypomagnesemia; I10 Essential (primary) hypertension; R41.3 Other amnesia; E78.5 Hyperlipidemia, unspecified; F32.9 Major depressive disorder, single episode, unspecified; R73.9 Hyperglycemia, unspecified; R79.89 Other specified abnormal findings of blood chemistry; Z66 Do not resuscitate; G47.30 Sleep apnea, unspecified; R09.02 Hypoxemia; T38.0X5A Adverse effect of glucocorticoids and synthetic analogues, initial encounter; Z83.79 Family history of other diseases of the digestive system; Z72.89 Other problems related to lifestyle; Z79.84 Long term (current) use of oral hypoglycemic drugs; Z79.82 Long term (current) use of aspirin; Z79.899 Other long term (current) drug therapy
CPT/HCPCS: 36415; 71010; 78452; 80048; 82945; 83605; 83735; 83916; 83921; 84145; 84157; 84484; 85025; 85652; 85730; 86140; 86787; 87070; 87205; 87798; 89051; 93005; 93017; 94760; 94762; 95819; A9270-GY; A9502; J0133; J0360; J0696; J1644; J1650; J2250; J3010; J3475; J7512

== ENCOUNTER 2017-03-10 13:45 | Emergency (ER) | payer MEDICARE, OTHER ==
[2017-03-10 14:54] VITALS: BP 99/66
--- NOTE | 2017-03-10 15:30 | UC ---
UC General HPI - HPI Summary HPI Summary: patient is here for a persistant cough. He has hx of dementia and daughter states there has been no fever. She has chest congestion. does wear hearing aides. daughter also states she thinks he has a UTI as he has been incontinent which is not his norm. - History of Current Complaint Chief Complaint: UCRespiratory Stated Complaint: COUGH Time Seen by Provider: 03/10/17 14:56 Hx Obtained From: Patient Onset/Duration: Sudden Onset, Lasting Days Timing: Constant Onset Severity: Moderate Current Severity: Moderate Associated Signs & Symptoms: Positive: Cough - Allergy/Home Medications Allergies/Adverse Reactions: Allergies Allergy/AdvReac Type Severity Reaction Status Date / Time No Known Allergies Allergy Verified 05/18/16 16:35 Home Medications: Home Medications Aspirin EC Low Dose* [Ecotrin EC Low Dose 81 MG*] 325 mg PO DAILY 03/10/17 [ History Confirmed 03/10/17] Carvedilol TAB* [Coreg TAB*] 3.125 mg PO BID 03/10/17 [History Confirmed ] PMH/Surg Hx/FS Hx/Imm Hx Previously Healthy: Yes Endocrine History Of: Reports: Diabetes Cardiovascular History Of: Reports: Cardiac Disorders - A-fib, Hypertension Denies: Pacemaker/ICD, Myocardial Infarction Respiratory History Of: Reports: Pneumonia GI/ History Of: Denies: Renal Disease Neurological History Of: Reports: TIA - possible, Dementia Psychological History Of: Reports: Anxiety, Depression - Surgical History Surgical History: Yes Surgery Procedure, Year, and Place: HERNIA REPAIR, [facility], melenoma removal left chest - Family History Known Family History: Positive: Cardiac Disease, Hypertension - Social History Alcohol Use: None Alcohol Amount: 2 BEERS DAILY Substance Use Type: None Smoking Status (MU): Never Smoked Tobacco - Immunization History Most Recent Influenza Vaccination: fall 2015 Most Recent Tetanus Shot: unk Most Recent Pneumonia Vaccination: received Review of Systems Constitutional: Negative Skin: Negative Eyes: Negative ENT: Negative Respiratory: Cough Cardiovascular: Negative Gastrointestinal: Negative Genitourinary: Frequency Motor: Negative Neurovascular: Negative Musculoskeletal: Negative Neurological: Negative Psychological: Negative All Other Systems Reviewed And Are Negative: Yes Physical Exam Triage Information Reviewed: Yes Appearance: Well-Appearing, Well-Nourished, Ill-Appearing Vital Signs: Initial Vital Signs Temp 96.8 F 03/10/17 14:37 Pulse 73 03/10/17 14:37 Resp 14 03/10/17 14:37 BP 99/66 03/10/17 14:37 Pulse Ox 96 03/10/17 14:37 Vital Signs Reviewed: Yes Eye Exam: Normal Eyes: Positive: Conjunctiva Clear ENT Exam: Normal ENT: Positive: Hearing grossly normal, Pharyngeal erythema - with white spots and film around the oral cavity Dental Exam: Normal Neck exam: Normal Neck: Positive: Supple, Nontender, No Lymphadenopathy Respiratory Exam: Normal Respiratory: Positive: Chest non-tender, Decreased breath sounds, Crackles, Expiration, Inspiration Cardiovascular Exam: Normal Cardiovascular: Positive: RRR, No Murmur, Pulses Normal Abdominal Exam: Normal Abdomen Description: Positive: Nontender, No Organomegaly, Soft Bowel Sounds: Positive: Present Musculoskeletal Exam: Normal Musculoskeletal: Positive: Strength Intact, ROM Intact, No Edema Neurological Exam: Normal Neurological: Positive: Alert, Muscle Tone Normal Psychological Exam: Normal Skin: Positive: Other - multiple old bruises along arms and hands, daughter state from his blood draws. Course/Dx - Course Course Of Treatment: hx obtained, exam performed, meds reviewed, Chest xray, UA neg for infection, Pos for ketones and trace glucose, treated for oral thrush - Differential Dx - Multi-Symptom Provider Diagnoses: oral thrush. dehydration. left lobe atelectasis Discharge - Discharge Plan Condition: Stable Disposition: HOME Prescriptions: Nystatin SUSPENSION* 500,000 units PO QID #140 ml Patient Education Materials: Dehydration (ED), Oral Candidiasis (ED), Atelectasis (ED) Referrals: Brayden Yates DO [Primary Care Provider] - Additional Instructions: 1. Use the Nystatin as prescribed 2. take the doxycycline for the week and encourage movement and coughing with deep breathing 3. I recommend follow up in 4-5 days sooner if needed.
--- NOTE | 2017-03-10 15:47 | RAD ---
INDICATION: Shortness of breath, decreased breath sounds. Chest congestion. Atrial fibrillation. Diabetes. COMPARISON: November 16, 2016 chest radiograph TECHNIQUE: Dual energy PA and routine lateral views of the chest were obtained. REPORT: Linear subsegmental atelectasis at the LEFT lung base. No alveolar consolidation concerning for pneumonia, focal pulmonary lesion, pleural effusion, pneumothorax. The heart, pulmonary vasculature, and mediastinal contours are unremarkable. No fracture or suspicious osseous lesion evident. IMPRESSION: Mild linear subsegmental atelectasis at the LEFT lung base. No compelling evidence for pneumonia or other acute pulmonary or cardiac process.
== END 2017-03-10 16:00 | disposition home or self-care (01) ==
LOC: UCCORT 13:45
DX: J98.11 Atelectasis (principal); B37.89 Other sites of candidiasis; E86.0 Dehydration; E11.9 Type 2 diabetes mellitus without complications; I10 Essential (primary) hypertension; I48.91 Unspecified atrial fibrillation; Z79.82 Long term (current) use of aspirin
CPT/HCPCS: 71020; 81003; 99212; G0463